=== PATIENT | female | born 1970 | race African-American/Black ===

== ENCOUNTER 2017-01-29 16:14 | Observation (INO) ==
[2017-01-29] MEDS ORDERED: NITROGLYCERIN SL 0.4 MG TABLET SL PRN (17:32)
[2017-01-29] MEDS ORDERED: NITROGLYCERIN SL 0.4 MG TABLET SL ONE (17:32)
[2017-01-29] MEDS ORDERED: ASPIRIN 325 MG TABLET ONE (17:32)
[2017-01-29] MEDS ORDERED: ASPIRIN 325 MG TABLET PO STA (17:32)
[2017-01-29] MEDS ORDERED: ENOXAPARIN 100 MG/ML SYRINGE SUBCUT STA (17:32)
[2017-01-29] MEDS ORDERED: ENOXAPARIN 100 MG/ML SYRINGE SUBCUT ONE (17:35)
[2017-01-29 17:38] LABS: Basophils # 0.1 10*3/uL (0.0-0.2); Basophils % 0.6 % (0.0-0.8); Eosinophils # 0.1 10*3/uL (0.0-0.87); Eosinophils % 1.1 % (0.00-10.9); Hemoglobin 12.3 GM/DL (12.0-16.0); Immature Granulocytes % 0.2 %; Immature Granulocytes Absolute 0.02 #; Lymphocytes % 22.9 % (21.3-54.2); Mean Corpuscular HGB Conc 31.5 GM/DL (32-36); Mean Corpuscular Hemoglobin 29 PG (27-34); Mean Corpuscular Volume 91.3 FL (87-102); Mean Platelet Volume 9.6 FL (9.6-12.0); Monocytes # 0.5 10*3/uL (0.11-0.8); Monocytes % 5.7 % (1.7-12.7); Neutrophils % 69.5 % (38.7-73.9); Platelet Count 293 T/CUMM (130-400); Red Blood Count 4.27 MC/CUMM (3.8-5.5); Red Cell Distribution Width 15.5 % (9.3-17.3); White Blood Count 8.7 T/CUMM (4-12)
--- NOTE | 2017-01-29 17:55 | XRay Report ---
History is chest pain Comparison 09/25/2014 The heart and vessels are mildly enlarged with development of mild diffuse bilateral interstitial opacities. No consolidated infiltrate is seen Impression: Mild diffuse interstitial opacities most likely pulmonary edema PROCEDURE INTERPRETED AT [facility] DEPARTMENT OF RADIOLOGY Final Report Signed by: Dr. Rena Field
[2017-01-29 18:01] LABS: Alanine Aminotransferase 14 U/L (13-56); Albumin 3.4 G/DL (3.4-5.0); Alkaline Phosphatase 104 U/L (45-117); Aspartate Amino Transferase 13 U/L (0-37); Bilirubin,Total < 0.39 MG/DL (0.2-1.0); Blood Urea Nitrogen 11 MG/DL (7-18); Calcium 9.3 MG/DL (8.5-10.1); Glucose 98 MG/DL (74-106); Magnesium 2.1 MG/DL (1.8-2.4); Osmolality,Calculated 290.4 MOS/KG (273-304); Potassium 4.6 MMOL/L (3.5-5.1); Sodium 147 MMOL/L (136-145)
--- NOTE | 2017-01-29 18:23 | Emergency Department Note ---
Ryne Lee Gwan, am scribing for, and in the presence of, Zach Munson MD 17:48. Arpit Lee Phillip K, MD, personally performed the services described in this documentation, ascribed by Emilia Michele in my presence, and it is both accurate and complete [id number] . Arrival - Arrival Chief Complaint: Chest Pain Stated Complaint: CHEST PAIN, NUMBNESS PAIN IN LEFT ARM ED Nursing Triage Note: pain in center of chest that radiates down left arm that started yesterday dull pressure type pain that comes and goes. denies nausea sob or diaphoresis Mode of Arrival: Ambulatory Limitations: No Limitations Source: Patient, Old Records Reviewed, RN Notes Reviewed - History of Present Illness HPI Narrative: Pt is a 46 y/o female who presents to the ED with a c/o chest pain that radiates down her left arm with an onset yesterday. Patient describes the pain as dull and intermittent. Patient stated that she was at rest when the pain began and she describes the pain as aching. She has also had SOB. Patient confirmed that she had this pain before yesterday morning but it began to ease as the day progressed. She denies having any N/V, sweating, fever, cough, anything making his pain worse/better, use of tobacco or having a heart cath performed. Patient stated that she has had a blood clot in renal artery 2 years ago. Pt is followed by PCP in [place], [place]. No other problems/ complaints reported in ED. Onset (ago): day(s) Consistency: intermittent Severity: moderate Date of Last Menstrual Period: hyst Allergies/Adverse Reactions: Allergies Allergy/AdvReac Type Severity Reaction Status Date / Time No Known Allergies Allergy Verified 03/06/15 11:29 Home Medications: Home Medications Medication Instructions Recorded Confirmed Type Aspirin [Ecotrin] 81 mg PO QPM 01/29/17 01/29/17 History Review of System - Review of System 12 point system: reviewed and no additional remarkable complaints except as stated - Review of System Constitutional: Present: as per HPI. Absent: diaphoresis Cardiovascular: Present: as per HPI, chest pain Medical,Surgical,& Family Hx - Medical History Gastrointestinal: No history of: GI Problems - Social History Smoking Status: Never smoker Exam Vital Signs: Vital Signs Temperature 98.5 F 01/29/17 16:19 Pulse Rate 79 01/29/17 16:19 Respiratory Rate 18 01/29/17 16:19 Blood Pressure 139/57 01/29/17 16:19 O2 Sat by Pulse Oximetry 97 01/29/17 16:19 - General General appearance: alert, in no apparent distress - Head Head exam: Present: atraumatic, normocephalic - Eye Eye exam: Present: normal appearance, PERRL, EOMI - ENT ENT exam: Present: normal oropharynx, mucous membranes moist, TM's normal bilaterally, normal external ear exam - Neck Neck exam: Present: full ROM, trachea midline. Absent: tenderness, meningismus - Chest Chest inspection: Present: symmetric chest wall rise. Absent: tenderness - Respiratory Respiratory exam: Present: normal lung sounds bilaterally. Absent: respiratory distress - Cardiovascular Cardiovascular exam: Present: regular rate, normal rhythm, normal heart sounds. Absent: murmur, rubs - Abdominal Exam Abdominal exam: Present: soft, normal bowel sounds. Absent: distention, tenderness - Extremities Exam Extremities exam: Present: other (trace edema bilateral LE) - Back Exam Back exam: Present: full ROM. Absent: tenderness - Neurological Exam Neurological exam: Present: alert, oriented X3, CN II-XII intact. Absent: motor sensory deficit - Psychiatric Psychiatric exam: Present: normal affect, normal mood - Skin Skin exam: Present: warm, dry, intact, normal color Course Course Narrative: Patient discussed with Dr. De. We will put her in the hospital overnight for serial enzymes and a stress test in the morning. Results - Labs CBC & BMP: 01/29/17 17:19 01/29/17 17:19 Lab Results: I have reviewed the patients labs Labs: Laboratory Tests 01/29/17 01/29/17 17:19 17:19 WBC 8.7 RBC 4.27 Hgb 12.3 Hct 39.0 MCHC 31.5 L Plt Count 293 Sodium 147 H Potassium 4.6 Chloride 108 H Carbon Dioxide 29 BUN 11 Creatinine 0.70 Globulin 4.6 H Albumin/Globulin Ratio 0.7 L Laboratory Tests 01/29/17 17:19 Troponin I < 0.015 - EKG EKG results: interpreted by ERMNabor, sinus rhythm (flipped T-wave in V2, isolated Q wave in V2) - Diagnostic Findings Procedure: Chest x-ray: report reviewed by me (Mild diffuse interstitial opacities most likely pulmonary edema. ) Disposition Clinical Impression: Chest pain Case discussed with: patient Disposition: Still a Patient Condition: Guarded Additional Instructions: Admit to Dr. De
[2017-01-29] MEDS ORDERED: MAGNESIUM SULF RIDER 2 GM in PREMIX 1 EACH IV PRN (18:25)
[2017-01-29] MEDS ORDERED: MAGNESIUM SULF RIDER 4 GM in PREMIX 1 EACH IV PRN (18:25)
--- NOTE | 2017-01-30 06:37 | EKG Report ---
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
--- NOTE | 2017-01-30 06:37 | EKG Report ---
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
--- NOTE | 2017-01-30 07:39 | Cardiology History & Physical ---
<Destiney Duenas E - Last Filed: 01/30/17 07:36> Assessment and Plan - Time spent with patient Time spent with patient: Greater than 30 minutes (due to assessment, plan, and documentation) (1) Chest pain Status: Acute Assessment and plan: Patient has some typical and some atypical features of angina. In the light of the patient having 3 sets of normal troponins and normal EKG, we will further discuss with Dr. De and await her recommendations. Current Visit: Yes (2) Family history of coronary artery disease Status: Chronic Assessment and plan: Sister had CABG at age 56. Current Visit: Yes (3) Obesity (BMI 30-39.9) Status: Chronic Current Visit: Yes (4) Sedentary lifestyle Status: Chronic Assessment and plan: Patient is somewhat limited by chronic bilateral knee pain. Current Visit: Yes History of Present Illness Chief complaint: chest pain History of present illness: Ms. Pardo is a 46 year old -[place] female who is not followed by cardiology. Her primary care provider is Dr. Fisher in [place], [place]. She denies a past medical history of hypertension, diabetes, hyperlipidemia. She is a lifetime non-smoker. She reports she previously had gastroesophageal reflux disease but she no longer requires medication for this. She also reports having had a blood clot in 1 of her renal arteries approximately 2 years ago. She tells me she does have problems with "inflammation" for which she sees a joiner apprentice in [place]. She tells me this affects her knees especially and she occasionally has to use a cane. She tells me she has also seen a neurologist in [place] for pinched nerves in her back and had an appointment to see a spine childcare attendant in [place] today. She denies any further significant medical history. She has risk factors significant for: Obesity, sedentary lifestyle. She does report a family history of heart disease with 1 of her sisters having had CABG at age 56. She presented to the hospital yesterday afternoon with complaints of chest pain. She tells me she has had 3 episodes of chest pain within the last month. The first episode was approximately 1 month ago when she was up and moving around. She has had 2 subsequent episodes within the last week, the most recent being yesterday. She describes this pain as a pressure that begins on the right side of her chest and goes all the way across to her left chest, left shoulder, and down her left arm. She tells me it "felt like someone was hitting me." She rates this pain as a 6 out of 10. She reports yesterday this pain lasted approximately 10 minutes before going away on its own. She tells me each of the 3 episodes has lasted approximately 5-10 minutes and gone away on their own. The episode yesterday occurred at rest. She reports associated feelings of palpitations but denies any associated shortness of breath, diaphoresis, dizziness, lightheadedness, syncope, nausea, or vomiting. She can identify no aggravating or alleviating factors. She is a little tender to palpation of her right and left chest wall and left shoulder, but tells me this is not the same pain that she has experienced. She has had 3 sets of negative troponins. Her creatinine is 0.7, potassium 4.6, magnesium 2.1. She has been in sinus rhythm with heart rates primarily in the 70 's-80's. Her blood pressure has been well controlled. EKG shows no acute abnormality. Home Medications Medication Instructions Recorded Confirmed Type Aspirin [Ecotrin] 81 mg PO QPM 01/29/17 01/29/17 History Allergies Allergy/AdvReac Type Severity Reaction Status Date / Time No Known Allergies Allergy Verified 03/06/15 11:29 Review of systems: - Constitutional: Present: weakness, As per HPI. Absent: anorexia, chills, daytime sleepiness, excessive sweating, fever(s), frequent falls, headache(s), increased appetite, lethargy, malaise, night sweats, stops breathing during sleep, weight gain, weight loss, fatigue. - EENT Eyes: Present: As per HPI. Absent: blurry vision, diplopia, loss of vision Ears: Present: As per HPI. Absent: decreased hearing, ear discharge, ear pain Nose, mouth and throat: Present: As per HPI. Absent: dysphagia, epistaxis, headache(s), hoarseness, lip swelling, nasal congestion, neck mass, neck pain, sinus pressure, sore throat, throat swelling, tongue swelling, vertigo - Cardiovascular: Present: neck or arm pain, chest pain at rest, chest pain with activity, palpitations, as per HPI. Absent: dyspnea, dyspnea on exertion , edema, claudication, diaphoresis, radiating jaw, lightheadedness, orthopnea, PND - Respiratory: Present: as per HPI. Absent: dyspnea, dyspnea on exertion, cough , hemoptysis, wheezing, snoring, pain on inspiration - Gastrointestinal: Present: As per HPI. Absent: abdominal pain, bloating, change in bowel habits, constipation, diarrhea, heartburn, hematemesis, hematochezia, loose stools, melena, nausea, vomiting - Genitourinary: Present: As per HPI. Absent: difficulty urinating, dysuria, flank pain, hematuria, nocturia, urinary frequency, urinary incontinence - Musculoskeletal: Present: bilateral knee pain, As per HPI. Absent: arthralgias , back pain, joint swelling, limited range of motion, muscle cramps, muscle weakness, myalgias - Neurological: Present: As per HPI. Absent: abnormal gait, abnormal speech, behavioral changes, confusion, convulsions, disequilibrium, dizziness, focal weakness, frequent falls, headache(s), memory loss, numbness, paresthesias, radicular pain, syncope, tremor(s) - Psychiatric: Present: As per HPI. Absent: anxiety, confusion, depression, panic attacks - Endocrine: Present: As per HPI. Absent: cold intolerance, fatigue, heat intolerance, polydipsia, polyphagia - Hematologic/Lymphatic: Present: As per HPI. Absent: easy bleeding, easy bruising, lymphadenopathy Medical,Surgical,& Family Hx - Medical History Cardio: No history of: CHF, Hypertension Endocrine: No history of: Diabetes Mellitus (IDDM), Diabetes Mellitus (NIDDM), Dyslipidemia Rheumatology: History of;: Rheumatoid Arthritis Renal: History of: Renal Problems (prior renal artery blood clot) Gastrointestinal: No history of: GI Problems - Surgical History Reproductive Surgeries: Surgical HX of;: Hysterectomy (2015), Tubal Ligation ( 2005) - Family History Family History: Reports;: Family Diabetes (sister), Family Heart Disease ( sister had CABG at age 56, paternal uncles have had TX's in 60's-70's. ), Family Hypertension (mom) - Social History Smoking Status: Never smoker Frequency of Alcohol Use: None Type of Drug Use: None Marital Status: Lives With:: Children Functional capacity: uses cane/walker (occasionally) Cardiology Physical Exam - Constitutional Vitals: Vital Signs Temp Pulse Resp BP Pulse Ox 97.9 F 70 17 103/61 100 01/30/17 04:00 01/30/17 04:00 01/30/17 06:00 01/30/17 04:00 01/30/17 04:00 Intake and Output 01/29/17 01/30/17 01/30/17 22:59 06:59 14:59 Intake Total 120 / 120 Output Total 150 / 150 Balance 120 / 120 -150 / -150 Intake: Oral 120 / 120 Output: Urine 150 / 150 Other: Voiding Method Toilet Toilet # Voids 1 Weight 246 lb 246 lb Exam: General: Present: Appears Well, No Apparent Distress. Pleasant and cooperative. Appears comfortable. Obese. HEENT: Present: PERRL, Normocephaly, atraumatic. Mucus Membranes Moist. No jaundice noted. Conjunctiva moist and clear, sclerae anicteric Neck: Present: Supple Neck, Midline Trachea, No Masses, No Bruit Cardiac: Present: Regular Rate and Rhythm, No Murmur Lungs: Present: Clear to auscultation bilaterally, no wheeze, rhonchi, rales, decreased breath sounds in posterior bases. Neuro: Present: Awake, alert, and oriented x3. Moves all extremities well without hemiparesis or paralysis. Grossly Intact. Absent: Resting Tremor, Essential Tremor Abdomen: Present: Soft, Active Bowel Sounds, No Masses, Non-Tender, nondistended. No abdominal bruit or thrill noted. Skin: Present: Clear. Absent: Rash, No skin breakdown. Musculoskeletal: Present: No Fluid Collection, No Pain, Normal Range of Motion Extremities: Present: Normal Gait, No Clubbing, No Cyanosis, Upper Extr. Pulses 2+, Lower Extr. Pulses 2+, No edema. Capillary refill less than 3 seconds. Result/EKG - Labs CBC & BMP: 01/29/17 17:19 01/29/17 17:19 Lab Results: I have reviewed the past 24 hour labs Labs: Laboratory Results - last 24 hr 01/29/17 01/29/17 20:02 23:58 Troponin I < 0.015 < 0.015 - EKG EKG results: interpreted by me, sinus rhythm <Nila De - Last Filed: 01/30/17 14:02> History of Present Illness History of present illness: I have personally interviewed and evaluated the patient, reviewed the chart and discussed medical decision-making with practitioner Henrique. I have read this note and agree with her documentation here in. The patient is an intermediate risk of cardiovascular disease due to her strong family history. Her symptoms have some typical, but mainly atypical features. We will further risk stratify her with stress testing. Cardiology Physical Exam - Constitutional Vitals: Vital Signs Temp Pulse Resp BP Pulse Ox 97.6 F 81 20 115/55 99 01/30/17 11:43 01/30/17 11:43 01/30/17 11:43 01/30/17 11:43 01/30/17 11:43 Intake and Output 01/29/17 01/30/17 01/30/17 23:59 07:59 15:59 Intake Total 120 / 120 Output Total 150 / 150 500 / 500 Balance 120 / 120 -150 / -150 -500 / -500 Intake: Oral 120 / 120 Output: Urine 150 / 150 500 / 500 Other: Voiding Method Toilet Toilet Toilet # Voids 1 Weight 111.584 kg 111.584 kg Patient Weight 01/30/17 23:59 Weight 111.584 kg Result/EKG - Labs CBC & BMP: 01/29/17 17:19 01/29/17 17:19 Labs: Laboratory Results - last 24 hr 01/29/17 01/29/17 01/30/17 20:02 23:58 08:42 Troponin I < 0.015 < 0.015 B-Natriuretic Peptide Triglycerides 66 Cholesterol 151 LDL Cholesterol 89.0 VLDL Cholesterol 13.2 HDL Cholesterol 61 H Heart Disease Risk Ratio 2.48 01/30/17 08:42 Troponin I B-Natriuretic Peptide 26 Triglycerides Cholesterol LDL Cholesterol VLDL Cholesterol HDL Cholesterol Heart Disease Risk Ratio
--- NOTE | 2017-01-30 07:42 | EKG Report ---
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
[2017-01-30] MEDS ORDERED: ACETAMINOPHEN 325 MG TABLET PO PRN (08:13)
[2017-01-30] MEDS ORDERED: BISACODYL 5 MG TABLET PO PRN (08:13)
[2017-01-30] MEDS ORDERED: ONDANSETRON 4 MG/2 ML VIAL IV PRN (08:13)
[2017-01-30] MEDS ORDERED: PANTOPRAZOLE 40 MG TABLET PO SCH (09:00)
[2017-01-30 10:07] LABS: Risk Ratio 2.48; VLDL CHOLESTEROL 13.2 MG/DL
[2017-01-30 16:00] VITALS: BP 110/57
--- NOTE | 2017-01-30 16:48 | Discharge Summary ---
<Trina Bah E - Last Filed: 01/30/17 16:44> Hospital Course - Hospital Course Hospital Course: Ms. Pardo is a 46 year old -[place] female who is not followed by cardiology. Her primary care provider is Dr. Fisher in [place], [place]. She denies a past medical history of hypertension, diabetes, hyperlipidemia. She is a lifetime non-smoker. Patient presented to the emergency department at [facility] January 29, 2017 with complaints of chest pain. Cardiac biomarkers were negative. EKG was unremarkable. She underwent elective nuclear stress testing and received favorable results. EKG was stable. Echocardiogram was unremarkable. She is anxious for release home. Having felt him at maximal medical therapy, she is being discharged home in stable condition. She is being given a 2 month follow-up with Dr. De. We will treat her noncardiac chest pain as a musculoskeletal pain and with a PPI. New discharge medications will include the following: Neurontin 100 mg orally 3 times daily 1 week Tramadol 100 mg orally twice daily 1 week Acetaminophen 325 mg orally twice daily 1 week Prilosec 20 mg orally daily 6 weeks - Time spent with patient Time with patient DS: Greater than 30 minutes Diagnosis - Discharge Diagnosis (1) Chest pain Status: Resolved (2) Obesity (BMI 30-39.9) Status: Chronic (3) Family history of coronary artery disease Status: Chronic (4) Sedentary lifestyle Status: Chronic Specialty Discharge - Follow Up or Referrals Follow up with: Nila De MD [Physician] - (2 months) Kathy Stephens M.D. [Physician] - 1 Month Discharge Plan - Discharge Data Disposition: Disch To Home/Self Care Condition at Discharge: Stable Discharge Diet: heart healthy Activity: resume usual activities as tolerated Hygiene: no restrictions Weight Bearing at Discharge: full weight bearing Driving: no restrictions Contact your physician if you experience:: fever over 101, Difficulty voiding, Redness or swelling, Nausea/Vomiting, Shortness of breath, Bleeding, pain uncontrolled by pain medications - Discharge Medications [place] Cap/Tab [Neurontin Cap/Tab] 100 mg PO TID #21 capsule Pantoprazole Tab [Protonix Tab] 40 mg PO DAILY #30 tablet traMADol TAB [Ultram] 50 mg PO BID #14 tablet Acetaminophen Tab [Tylenol Tab] 325 mg PO BID #14 tablet Continue Aspirin [Ecotrin] 81 mg PO QPM - Follow Up or Referral Follow Up: Kathy Stephens M.D. [Physician] - 1 Month Nila De MD [Physician] - (2 months) - Forms/Instructions Exam - Constitutional Vitals: Period Temp Pulse Resp BP Sys/Soares Pulse Ox Last 24 Hr 97.2 F-98.4 F 70-90 16-20 103-123/55-98 98-100 Exam: General: [Appears well with no apparent distress.] [Pleasant and cooperative. ] [Appears comfortable.] HEENT: [PERRL, normocephalic, atraumatic. Mucous membranes moist. No jaundice noted. Conjunctiva moist and clear, sclerae anicteric] Neck: No JVD/HJR, no thyromegaly or lymphadenopathy noted. No carotid bruit appreciated Cardiac: [Regular rate and rhythm.] [No murmur rub or gallop.] Lungs: [Clear to auscultation without accessory muscle use to assist the respiratory pattern.] Not requiring oxygen Abdomen: Soft, bowel sounds normoactive. Nontender and nondistended. No abdominal bruit or thrill noted. No masses noted. Musculoskeletal: No fluid collection. Decreased range of motion is noted. Extremities: No clubbing, cyanosis noted. [ No edema noted.] Upper extremity pulses 2+. Lower extremity pulses 2+. Capillary refill less than 3 seconds. Skin: No unusual lesions or rashes. No skin breakdown appreciated. Neuro: Awake, alert and oriented 3. Moves all extremities well without hemiparesis or paralysis. No essential tremor is appreciated. Discharge Results Procedures and tests throughout hospitalization: Pending Orders 01/30/17 11:42 NM jero perf SPECT rest or str Routine 01/31/17 04:00 Basic Metabolic Panel IN AM Magnesium IN AM Labs on day of discharge: Labs from last 24 hours 01/30/17 01/30/17 01/29/17 08:42 08:42 23:58 Troponin I < 0.015 B-Natriuretic Peptide 26 Triglycerides 66 Cholesterol 151 LDL Cholesterol 89.0 VLDL Cholesterol 13.2 HDL Cholesterol 61 H Heart Disease Risk Ratio 2.48 01/29/17 20:02 Troponin I < 0.015 B-Natriuretic Peptide Triglycerides Cholesterol LDL Cholesterol VLDL Cholesterol HDL Cholesterol Heart Disease Risk Ratio - Imaging and Cardiology Cardiology Procedure: report reviewed by me Procedure: Chest x-ray: report reviewed by me DS: Provider Date of admission: 01/29/17 18:24 Primary care physician: . No PCP Attending physician on admission: Nila De, Consults: 01/29/17 22:32 Consult to Pastoral Services [CONS] Routine Comment: Pastoral Screen: Request [facility] Visit Pastoral Screen Source of Request: Patient 01/30/17 08:25 Consult to Pharmacy [CONS] Routine Reason for Pharmacy Consult: Adjust Meds Renal Funct Discharging clinician: Trina Bah NP Expected date of discharge: 01/30/17 <Nila De - Last Filed: 01/30/17 17:04> Hospital Course - Hospital Course Hospital Course: I have personally interviewed and evaluated the patient, reviewed the chart and discussed medical decision-making with Practitioner Niurka. I have read this note and agree with her documentation here in.
[2017-01-30] MEDS ORDERED: ASPIRIN EC 81 MG TABLET PO SCH (19:00)
--- NOTE | 2017-01-30 19:57 | Nuclear Medicine Report ---
EXERCISE STRESS TEST DATE: 01/30/2017 REFERRING: Nila De MD INTERPRETING: Nila De MD INDICATION: A 46-year-old female with long-term history of coronary artery disease, being evaluated for chest pain. PROCEDURE: The patient underwent exercise Cardiolite per protocol and 10 mCi of Technetium-99 was injected for rest imaging. Subsequently, the patient was exercised per Oleg protocol and at peak stress 30 mCi of Technetium-99 was injected for stress imaging. ECG supervision and interpretation was supervised by lisa Bah and reviewed by me. The patient exercised according to Oleg protocol, achieving a maximum heart rate of 157 beats per minute (91% maximum predicted heart rate) and 7.6 METS. Maximum blood pressure 145/86. No arrhythmias or ST changes occurred, mild chest tightness was reported. Poor exercise tolerance was noted with moderate dyspnea on exertion and fatigue during exercise. SPECT images were obtained in the short axis, horizontal, vertical long axis with gating. Ejection fraction is 71%, End-diastolic volume is 66 mL, end- systolic volume 19 mL, stroke volume 47 mL. At rest, there is large extent mild intensity perfusion defect in the inferior wall. With stress imaging, there is fairly matched stress to rest perfusion. Although, the inferior wall perfusion defect improves slightly. On review of cine images, diaphragmatic attenuation is noted. IMPRESSION: 1. NORMAL LEFT VENTRICULAR SYSTOLIC FUNCTION. 2. NORMAL CHRONOTROPIC RESPONSE TO EXERCISE. 3. RESTING INFERIOR WALL PERFUSION DEFECT THAT IMPROVES SLIGHTLY WITH STRESS WHEN COMPARED TO REST AND OVERALL IS THOUGHT TO BE SECONDARY TO DIAPHRAGMATIC ATTENUATION. A COMPONENT OF PRIOR MYOCARDIAL INFARCTION WITH SCAR FORMATION CANNOT BE ENTIRELY EXCLUDED, ALTHOUGH THERE IS NORMAL WALL MOTION IN THIS AREA. 4. NO GROSS NUCLEAR EVIDENCE OF REVERSIBLE ISCHEMIA. Procedure performed and interpreted at [facility] Department of Radiology. [facility]
== END 2017-01-30 19:31 | disposition home or self-care (01) ==
LOC: N.EDINP 16:14 → N.ED 16:14 → N.TELES 19:23
PROVIDERS: ADMIT Internal Medicine Cardiovascular Disease; ATTEND Internal Medicine Cardiovascular Disease

== ENCOUNTER 2018-09-13 14:48 | Observation (INO) ==
[2018-09-13] MEDS ORDERED: ASPIRIN 325 MG TABLET PO STA (15:42)
[2018-09-13 15:53] LABS: Basophils # 0.1 10*3/uL (0.0-0.2); Basophils % 0.5 % (0.0-0.8); Eosinophils # 0.1 10*3/uL (0.0-0.87); Eosinophils % 0.8 % (0.00-10.9); Hematocrit 39.9 VOL% (35.7-47.0); Hemoglobin 12.8 GM/DL (12.0-16.0); Immature Granulocytes % 0.3 %; Immature Granulocytes Absolute 0.03 #; Lymphocytes # 2.3 10*3/uL (1.4-4.0); Lymphocytes % 21.9 % (21.3-54.2); Mean Corpuscular HGB Conc 32.1 GM/DL (32-36); Mean Corpuscular Hemoglobin 29 PG (27-34); Mean Corpuscular Volume 90.9 FL (87-102); Monocytes # 0.6 10*3/uL (0.11-0.8); Monocytes % 5.8 % (1.7-12.7); Neutrophils # 7.5 10*3/uL (1.4-7.4); Neutrophils % 70.7 % (38.7-73.9); Platelet Count 342 T/CUMM (130-400); Red Blood Count 4.39 MC/CUMM (3.8-5.5); Red Cell Distribution Width 15.1 % (9.3-17.3); White Blood Count 10.6 T/CUMM (4-12)
[2018-09-13 15:59] LABS: PT Patient Result 10.3 SECS; Partial Thromboplastin Time 27.9 SECS (0-40)
[2018-09-13 16:03] LABS: Alanine Aminotransferase 17 U/L (13-56); Albumin 3.5 G/DL (3.4-5.0); Alkaline Phosphatase 115 U/L (45-117); Aspartate Amino Transferase 14 U/L (0-37); Bilirubin,Total < 0.39 MG/DL (0.2-1.0); Blood Urea Nitrogen 8 MG/DL (7-18); Calcium 9.2 MG/DL (8.5-10.1); Glucose 81 MG/DL (74-106); Osmolality,Calculated 279.1 MOS/KG (273-304); Potassium 4.4 MMOL/L (3.5-5.1); Sodium 142 MMOL/L (136-145); Total Protein 8.1 G/DL (6.4-8.3)
[2018-09-13 16:24] LABS: Apearance,Urine CLEAR (Clear); Bilirubin,Urine Negative (Negative); Blood, Urine Negative (Negative); Glucose,Urine (UA) Negative (Negative); Ketones,Urine Negative (Negative); Mucus,Urine Occasional /LPF (Occasional); Nitrite,Urine Negative (Negative); Protein,Urine Negative; RBC,Urine 1 /HPF (0-4); Squamous Epithelial Cell,Urine Occasional /HPF (0-10); Urine Color Straw (Yellow); Urine Specific Gravity 1.008 (1.001-1.035); Urine Urobilinogen < 2.0 EU/DL (0.2-1.0); WBC,Urine 3 /HPF (0-6)
[2018-09-13 16:35] LABS: Barbiturates Screen,Urine Negative (Negative); Benzodiazepines Screen,Urine Negative (Negative); Cannabinoid Screen,Urine Negative (Negative); Opiate Screen,Urine Negative (Negative); Phencyclidine Screen,Urine Negative (Negative)
[2018-09-13] MEDS ORDERED: ONDANSETRON 4 MG/2 ML VIAL IV PRN (17:22)
[2018-09-13] MEDS ORDERED: ACETAMINOPHEN 325 MG TABLET PO PRN ×2 (17:22→18:06)
[2018-09-13] MEDS ORDERED: DOCUSATE SODIUM 100 MG CAPSULE PO PRN (18:06)
[2018-09-13] MEDS ORDERED: NITROGLYCERIN SL 0.4 MG TABLET SL PRN (18:10)
[2018-09-13] MEDS ORDERED: ENOXAPARIN 40 MG/0.4 ML SYRINGE SUBCUT SCH (21:00)
[2018-09-13] MEDS ORDERED: traZODone 50 MG TABLET PO PRN (21:00)
[2018-09-13] MEDS ORDERED: ASPIRIN EC 81 MG TABLET PO SCH (21:00)
[2018-09-13 23:11] LABS: Troponin I < 0.015 NG/ML (0.00-0.045)
[2018-09-14 04:03] LABS: Basophils # 0.1 10*3/uL (0.0-0.2); Basophils % 0.6 % (0.0-0.8); Eosinophils # 0.1 10*3/uL (0.0-0.87); Eosinophils % 1.3 % (0.00-10.9); Hematocrit 37.6 VOL% (35.7-47.0); Hemoglobin 11.6 GM/DL (12.0-16.0); Immature Granulocytes % 0.2 %; Immature Granulocytes Absolute 0.02 #; Lymphocytes # 2.5 10*3/uL (1.4-4.0); Lymphocytes % 29.9 % (21.3-54.2); Mean Corpuscular HGB Conc 30.9 GM/DL (32-36); Mean Corpuscular Hemoglobin 28 PG (27-34); Mean Corpuscular Volume 91.5 FL (87-102); Mean Platelet Volume 10.4 FL (9.6-12.0); Monocytes # 0.5 10*3/uL (0.11-0.8); Neutrophils # 5.2 10*3/uL (1.4-7.4); Platelet Count 298 T/CUMM (130-400); Red Blood Count 4.11 MC/CUMM (3.8-5.5); Red Cell Distribution Width 15.5 % (9.3-17.3); White Blood Count 8.5 T/CUMM (4-12)
[2018-09-14 04:32] LABS: Troponin I < 0.015 NG/ML (0.00-0.045)
[2018-09-14 04:41] LABS: Calcium 8.8 MG/DL (8.5-10.1); Potassium 4.1 MMOL/L (3.5-5.1); Risk Ratio 2.46; Thyroid Stimulating Hormone 1.41 uIU/ml (0.358-3.74); VLDL CHOLESTEROL 17.2 MG/DL
[2018-09-14] MEDS ORDERED: PANTOPRAZOLE 40 MG TABLET PO SCH (09:00)
[2018-09-14 12:21] VITALS: BP 117/63
== END 2018-09-14 15:00 | disposition home or self-care (01) ==
LOC: N.ED 14:48 → N.EDINP 14:48 → N.2E 18:50
PROVIDERS: ADMIT Internal Medicine; ATTEND Internal Medicine

== ENCOUNTER 2019-01-25 20:17 | Observation (INO) ==
[2019-01-25] MEDS ORDERED: ASPIRIN 325 MG TABLET PO STA (20:37)
[2019-01-25] MEDS ORDERED: ALUM/MAG/SIMETH/LIDO VISC 1:1 30 ML BOTTLE PO STA (20:37)
[2019-01-25 20:57] LABS: Basophils # 0.1 10*3/uL (0.0-0.2); Basophils % 0.5 % (0.0-0.8); Eosinophils # 0.1 10*3/uL (0.0-0.87); Eosinophils % 0.9 % (0.00-10.9); Hematocrit 37.6 VOL% (35.7-47.0); Hemoglobin 11.8 GM/DL (12.0-16.0); Immature Granulocytes % 0.3 %; Immature Granulocytes Absolute 0.03 #; Lymphocytes # 2.1 10*3/uL (1.4-4.0); Lymphocytes % 21.5 % (21.3-54.2); Mean Corpuscular HGB Conc 31.4 GM/DL (32-36); Mean Corpuscular Hemoglobin 28 PG (27-34); Mean Corpuscular Volume 90.6 FL (87-102); Mean Platelet Volume 9.5 FL (9.6-12.0); Monocytes # 0.6 10*3/uL (0.11-0.8); Monocytes % 6.1 % (1.7-12.7); Neutrophils # 6.8 10*3/uL (1.4-7.4); Neutrophils % 70.7 % (38.7-73.9); Platelet Count 292 T/CUMM (130-400); Red Blood Count 4.15 MC/CUMM (3.8-5.5); Red Cell Distribution Width 15.6 % (9.3-17.3); White Blood Count 9.6 T/CUMM (4-12)
[2019-01-25 21:10] LABS: PT Patient Result 10.4 SECS; Partial Thromboplastin Time 27.4 SECS (0-40)
[2019-01-25 21:16] LABS: Alanine Aminotransferase 14 U/L (13-56); Alkaline Phosphatase 102 U/L (45-117); Aspartate Amino Transferase 8 U/L (0-37); Bilirubin,Total < 0.39 MG/DL (0.2-1.0); Blood Urea Nitrogen 11 MG/DL (7-18); Calcium 9.1 MG/DL (8.5-10.1); Glucose 88 MG/DL (74-106); Osmolality,Calculated 276.4 MOS/KG (273-304); Potassium 3.7 MMOL/L (3.5-5.1); Sodium 140 MMOL/L (136-145); Total Protein 8.1 G/DL (6.4-8.3)
[2019-01-26] MEDS ORDERED: ACETAMINOPHEN 325 MG TABLET PO PRN (03:36)
[2019-01-26] MEDS ORDERED: DOCUSATE SODIUM 100 MG CAPSULE PO PRN (03:36)
[2019-01-26] MEDS ORDERED: ONDANSETRON 4 MG/2 ML VIAL IV PRN (03:36)
[2019-01-26 04:34] LABS: Risk Ratio 2.41; VLDL CHOLESTEROL 9.8 MG/DL
[2019-01-26] MEDS ORDERED: PANTOPRAZOLE 40 MG TABLET PO SCH (09:00)
[2019-01-26] MEDS: ENOXAPARIN 40 MG/0.4 ML SYRINGE SUBCUT SCH (09:45)
[2019-01-26] MEDS ORDERED: ASPIRIN EC 81 MG TABLET PO SCH (21:00)
[2019-01-26] MEDS: tiZANidine 4 MG TABLET PO SCH (21:59)
[2019-01-27 06:54] LABS: Apearance,Urine Slightly Hazy (Clear); Bacteria,Urine Occasional /HPF (Few); Bilirubin,Urine Negative (Negative); Blood, Urine Negative (Negative); Glucose,Urine (UA) Negative (Negative); Ketones,Urine Negative (Negative); Mucus,Urine Many /LPF (Occasional); Nitrite,Urine Negative (Negative); Protein,Urine Negative; RBC,Urine 2 /HPF (0-4); Squamous Epithelial Cell,Urine Occasional /HPF (0-10); Urine Color Yellow (Yellow); Urine Specific Gravity 1.017 (1.001-1.035); Urine Urobilinogen < 2.0 EU/DL (0.2-1.0); WBC,Urine 9 /HPF (0-6)
[2019-01-27] MEDS ORDERED: PANTOPRAZOLE 40 MG TABLET PO SCH (09:00)
[2019-01-27] MEDS ORDERED: DULoxetine 30 MG CAPSULE PO SCH (09:00)
[2019-01-27] MEDS: ENOXAPARIN 40 MG/0.4 ML SYRINGE SUBCUT SCH (10:05)
[2019-01-27] MEDS: tiZANidine 4 MG TABLET PO SCH (10:05)
[2019-01-27 16:59] VITALS: BP 101/54
[2019-01-27] MEDS ORDERED: FAMOTIDINE 20 MG TABLET PO SCH (21:00)
== END 2019-01-27 18:52 | disposition home or self-care (01) ==
LOC: EDBD → EDUNIT# → N.ED 20:17 → N.EDINP 20:17 → SUATTDRO 01-26 02:50 → N.TELEN 01-26 08:45
PROVIDERS: ADMIT Internal Medicine Cardiovascular Disease; ATTEND Internal Medicine Nephrology